=== PATIENT | female | born 1980 | race Caucasian/White ===

== ENCOUNTER 2017-04-14 08:11 | Emergency (ER) | payer BC ==
[~2017-04-14] VITALS: Ht 152.4 cm; Wt 85.0 kg
[2017-04-14 08:15] VITALS: Ht 152.4 cm; Wt 85.0 kg
--- NOTE | 2017-04-14 09:10 | RADRPT ---
PROCEDURE: CT brain without contrast CLINICAL INDICATION: Headache, right parietal area, numbness right hand TECHNIQUE: CT of the brain without contrast was performed on a multidetector CT scanner, with multi planar reformats. One or more of the following dose reduction techniques were used: Automated expos ure control, adjustment in mA and / or kV according to patient size, use of iterative reconstructive technique. CTDIvol = 45 mGy; DLP = 720 mGy-cm. COMPARISON: None available FINDINGS: No acute intracranial hemorrhage is identified. No extra-axial fluid collection is seen. There is no mass effect. No midline shift is identified. Ventricles and sulci are within normal limits for size and configuration. The density of the brain is within normal limits. Barba-white differentiation is preserved. Osseous structures are unremarkable. Mastoid air cells and imaged paranasal sinuses grossly clear. IMPRESSION: Unremarkable noncontrast CT of the brain. RPTAT: VV .Joe Argueta MD, Date Time Electronically viewed and signed by .Joe Argueta MD, MD on 04/14/2017 09:10 .O/
[2017-04-14 09:25] LABS: ADD SCAN DIFF NO
[2017-04-14 09:29] LABS: BASOPHILS % 0.3 % (0.0-2.0); EOSINOPHILS # 0.1 10^3/ul (0.0-0.5); EOSINOPHILS % 1.1 % (0.0-7.0); HEMATOCRIT 43.1 % (37.0-47.0); HEMOGLOBIN 14.6 g/dl (12.0-16.0); LYMPHOCYTES # 2.6 10^3/ul (0.8-2.9); LYMPHOCYTES % 34.4 % (15.0-51.0); MEAN CORPUSCULAR HEMOGLOBIN 28.2 pg (29.0-33.0); MEAN CORPUSCULAR HGB CONC 33.9 g/dl (32.0-37.0); MEAN CORPUSCULAR VOLUME 83.4 fl (82.0-101.0); MEAN PLATELET VOLUME 9.2 fl (7.4-10.4); MONOCYTE # 0.5 10^3/ul (0.3-0.9); MONOCYTES % 6.2 % (0.0-11.0); NEUTROPHIL # 4.3 10^3/ul (1.6-7.5); NEUTROPHILS % 57.5 % (39.0-77.0); PLATELET COUNT 316 10^3/UL (140-415); RED BLOOD COUNT 5.17 10^6/ul (4.20-5.40); RED CELL DISTRIBUTION WIDTH 13.6 % (11.5-14.5); WHITE BLOOD COUNT 7.5 10^3/ul (4.8-10.8)
[2017-04-14 09:32] LABS: ADD UMIC YES; URINE BILIRUBIN (Dip) NEGATIVE (NEGATIVE); URINE BLOOD (Dip) 2+ (NEGATIVE); URINE COLOR LT. YELLOW (YELLOW); URINE GLUCOSE (Dip) NEGATIVE (NEGATIVE); URINE KETONES (Dip) NEGATIVE (NEGATIVE); URINE LEUKOCYTE ESTERASE (Dip) NEGATIVE (NEGATIVE); URINE NITRITE (Dip) NEGATIVE (NEGATIVE); URINE TOTAL PROTEIN (Dip) NEGATIVE (NEGATIVE); URINE UROBILINOGEN (Dip) 0.2 E.U./dL (0.1-1.0)
[2017-04-14 09:42] LABS: INR 0.95; PROTIME 12.7 Sec (12.2-14.2)
[2017-04-14 09:44] LABS: PARTIAL THROMBOPLASTIN TIME 33.9 Sec (25.0-35.0)
[2017-04-14 09:48] LABS: BACTERIA,URINE FEW
[2017-04-14 09:58] LABS: POTASSIUM 4.5 mmol/L (3.5-5.1)
[2017-04-14 10:00] LABS: CREATININE 0.54 mg/dl (0.44-1.00)
[2017-04-14 10:01] LABS: CALCIUM 9.8 mg/dl (8.4-10.2)
[2017-04-14] MEDS ORDERED: IBUP-1542 PO (10:07)
--- NOTE | 2017-04-14 10:27 | ERD ---
ER Documentation Chief Complaint Date/Time DATE: 04/14/17 TIME: 10:24 Chief Complaint tingling on rt side of head last night , resolved . rt side face pain today HPI This is a 36-year-old female presents to the ER complaining of tingling to the right side of her face that started last night, tingling has however resolved. Patient states that she has right-sided jaw pain and swelling. Patient denies any fevers or chills. She denies any dental pain. Patient denies any upper or lower extremity weaknesses. Patient denies any head trauma. She denies any headache, vision loss or vision changes. She denies any neck pain or neck stiffness. She denies any nausea vomiting or diarrhea. She denies any urinary frequency or dysuria. Patient states she has been very stressed out lately, however denies suicidal ideations. ROS 12 point review of systems was done, all negative except per HPI. Medications Home Meds Active Scripts Ibuprofen* (Motrin*) 600 Mg Tab, 600 MG PO Q6, #30 TAB Prov:ARMANDOAC C 04/14/17 Reported Medications [None] No Conflict Check 09/21/13 Allergies Allergies: Coded Allergies: No Known Allergy (Verified , 09/21/13) PMhx/Soc Medical and Surgical Hx: pt denies Medical Hx, pt denies Surgical Hx Hx Alcohol Use: No Hx Substance Use: No Hx Tobacco Use: No Smoking Status: Never smoker Physical Exam Vitals Vital Signs Date Time Temp Pulse Resp B/P Pulse Ox O2 Delivery O2 Flow Rate FiO2 04/14/17 08:15 98.1 94 18 138/81 98 Physical Exam GENERAL: The patient is well developed and appropriate for usual state of health , in no apparent distress. HEENT: Atraumatic. Conjunctivae are pink. Pupils equal, round, and reactive to light. Extraocular muscles are grossly intact. Bilateral tympanic membranes are clear with no evidence of erythema, bulging or perforation. No sinus tenderness. NECK: C-spine is soft and supple. There is no cervical lymphadenopathy. CHEST: Clear to auscultation bilaterally. There are no rales, wheezes or rhonchi. HEART: Regular rate and rhythm. No murmurs, clicks, rubs or gallops. EXTREMITIES: Equal pulses bilaterally. There is no peripheral clubbing, cyanosis or edema. No focal swelling or erythema. Full range of motion. Grossly neurovascularly intact. NEURO: Alert and oriented. Cranial nerves II through XII are intact. Motor strength in all 4 extremities with 5/5 strength. Sensation grossly intact. Normal speech and gait. Negative Rhomberg. +2 DTRs. SKIN: There is no apparent rash or petechia. The skin is warm and dry. Result Diagram: 04/14/17 0906 04/14/17 0906 Results 24 hrs Laboratory Tests Test 04/14/17 08:53 04/14/17 09:06 Urine Color LT. YELLOW Urine Clarity CLEAR Urine pH 6.0 Urine Specific [place] 1.015 Urine Ketones NEGATIVE Urine Nitrite NEGATIVE Urine Bilirubin NEGATIVE Urine Urobilinogen 0.2 E.U./dL Urine Leukocyte Esterase NEGATIVE Urine Microscopic RBC 5-10/HPF Urine Microscopic WBC 0-2/HPF Urine Epithelial Cells FEW Urine Bacteria FEW Urine Hemoglobin 2+ Urine Glucose NEGATIVE% Urine Total Protein NEGATIVE White Blood Count 7.510^3/ul Red Blood Count 5.1710^6/ul Hemoglobin 14.6g/dl Hematocrit 43.1% Mean Corpuscular Volume 83.4fl Mean Corpuscular Hemoglobin 28.2pg Mean Corpuscular Hemoglobin Concent 33.9g/dl Red Cell Distribution Width 13.6% Platelet Count 91673^3/UL Mean Platelet Volume 9.2fl Neutrophils % 57.5% Lymphocytes % 34.4% Monocytes % 6.2% Eosinophils % 1.1% Basophils % 0.3% Nucleated Red Blood Cells % 0.0/100WBC Neutrophils # 4.310^3/ul Lymphocytes # 2.610^3/ul Monocytes # 0.510^3/ul Eosinophils # 0.110^3/ul Basophils # 0.010^3/ul Nucleated Red Blood Cells # 0.010^3/ul Prothrombin Time 12.7Sec Prothrombin Time Ratio 1.0 INR International Normalized Ratio 0.95 Activated Partial Thromboplast Time 33.9Sec Sodium Level 139mmol/L Potassium Level 4.5mmol/L Chloride Level 110mmol/L Carbon Dioxide Level 24mmol/L Anion Gap 10 Blood Urea Nitrogen 9mg/dl Creatinine 0.54mg/dl Glucose Level 97mg/dl Calcium Level 9.8mg/dl Procedures/MDM Differential Diagnosis includes but is not limited to; tension headache, migraine headache, cluster headache, sinus headache, nonspecific febrile headache, trigeminal neurologia, subdural hematoma, subarachnoid bleeding, meningitis, encephalitis. Patient is neurologically intact with no focal neurological deficits. Patient's CT brain was normal with no evidence of intracranial bleeds or other abnormalities. There is no evidence of electrolyte imbalances, or infection. Patient's physical examination is completely benign, patient will be sent home with ibuprofen for jaw pain. Patient is to follow-up with her primary care doctor within 1-2 days or return to ER sooner if symptoms worsen. My medical decision making was shared with the patient she understands and agrees with plan. Departure Diagnosis: Primary Impression: Multiple complaints Condition: Stable Patient Instructions: Numbness Additional Instructions: Llame al doctor MAANA y lisa yvette YUMIKO PARA DENTRO DE 1-2 DASILVA.Dgale a la secretaria que nosotros le instruimos hacer esta yumiko.Avise o llame si abdullahi condicin se empeora antes de la yumiko. Regresa aqui si peor o no mejor. AC ROBERTS April 14, 2017 10:27
[2017-04-14 10:36] VITALS: BP 136/67; PULSE 62; RESP 18; TEMP 98.6
== END 2017-04-14 10:35 | disposition home or self-care (01) ==
LOC: FTE 08:11
DX: R20.2 Paresthesia of skin (principal); R68.84 Jaw pain
CPT/HCPCS: 70450; 80048; 81001; 85025; 85610; 85730; Z7502

== ENCOUNTER 2018-11-25 10:06 | Emergency (ER) | payer BC ==
[~2018-11-25] VITALS: Wt 84.4 kg
[~2018-11-25 10:06] MED LIST: IBUP-1542 PO
[2018-11-25 10:14] VITALS: BP 140/81; PULSE 78; RESP 18
[2018-11-25] MEDS ORDERED: MECLIZINE 12.5 MG TAB ONE (11:59)
[2018-11-25] MEDS ORDERED: MECLIZINE 12.5 MG TAB PO ONE (12:00)
[2018-11-25] MEDS ORDERED: MECL12.574 PO (13:17)
[2018-11-25] MEDS ORDERED: CARB15DR50 BOTH EARS (13:17)
--- NOTE | 2018-11-25 18:50 | ERD ---
ER Documentation Chief Complaint Chief Complaint R EAR PAIN X 3 DAYS HPI 38-year-old female patient with no significant past medical history presents to ED complaining of right ear pain. Patient describes as aching. Patient reports that she feels like something is inside of her ear, wants her earwax cleaned -feels like it is giving her decreased hearing. Denies any chest pain, shortness of breath, nausea, vomiting, diarrhea, neck stiffness. Denies any head or neck trauma. Denies any ear trauma. ROS All systems reviewed and are negative except as per history of present illness. Medications Home Meds Active Scripts Carbamide Peroxide* (Debrox*) 6.5% - 15 Ml Drops, 10 DROP BOTH EARS BID, #1 BOTTLE Prov:RADHA MATTHEWS PA-C 11/25/18 Meclizine Hcl* (Antivert*) 12.5 Mg Tab, 12.5 MG PO Q6H PRN for DIZZINESS, #20 TAB Prov:RADHA MATTHEWS PA-C 11/25/18 Ibuprofen* (Motrin*) 600 Mg Tab, 600 MG PO Q6, #30 TAB Prov:AC ROBERTS 04/14/17 Reported Medications [None] No Conflict Check 09/21/13 Allergies Allergies: Coded Allergies: No Known Allergy (Verified , 09/21/13) PMhx/Soc Hx Alcohol Use: No Hx Substance Use: No Hx Tobacco Use: No FmHx Family History: No diabetes, No coronary disease Physical Exam Vitals Vital Signs Date Temp Pulse Resp B/P (MAP) Pulse Ox O2 O2 Flow FiO2 Time Delivery Rate 11/25/18 97.3 78 18 140/81 99 10:14 (100) Physical Exam Const: Kbi-hma-wlmrvilrn, well-nourished. In no acute distress. Head: Atraumatic, normocephalic Eyes: Normal Conjunctiva without injection. No purulent discharge. PERRL. EOMI ENT: Normal external ear. Ear canal without erythema. Tympanic membrane pearly whitehead without effusion or bulging. Nasal canal clear with normal turbinates. No tenderness palpation of the bilateral tragus or mastoid. Moist oropharynx without tonsillar exudates. Non-erythematous pharynx. Uvula midline. No drooling. No trismus. Neck: Full range of motion. No meningismus. No cervical lymphadenopathy. Resp: Clear to auscultation bilaterally. No wheezing, rhonchi, rales, or crackles. No accessory muscle use. No retractions. Cardio: Regular rate and rhythm. No murmurs, rubs or gallops. Abd: Soft, non tender, non distended. Normal bowel sounds. No palpable masses. No rebound tenderness. No guarding. Skin: No petechiae or rashes Back: No midline tenderness. No CVA tenderness. Ext: No cyanosis, or edema. Neur: Awake and alert. Psych: Normal Mood and Affect Results 24 hrs Current Medications Medications Dose Sig/Bridgette Start Time Status Last (Trade) Ordered Route PRN Stop Time Admin Dose Reason Admin Meclizine 25 mg ONCE ONCE 11/25/18 Cancel HCl PO 12:00 (Antivert) 11/25/18 12:01 Meclizine 12.5 mg STK-MED 11/25/18 DC HCl ONCE .ROUTE 11:59 (Antivert) 11/25/18 12:00 Procedures/MDM 38-year-old female patient with no significant past medical history presents to the ED with a cerumen impaction. Patient is afebrile and nontoxic-appearing. Ear irrigation was performed here in the ED. Patient reports that she also feels like she has dizziness with positional movements. A course of meclizine was prescribed. Horizontal nystagmus noted. Low suspicion for central lesion. Low suspicion for intracranial bleed, subarachnoid hemorrhage, meningitis, TIA, stroke, subdural hematoma, epidural hematoma, carotid dissection or other emergent conditions. Low suspicion for acute myocardial infarction, pneumothorax, pericarditis, myocarditis, endocarditis, pneumonia, cardiac tamponade, pulmonary embolism, pleural effusion, AAA, aortic dissection, Boerhaave's syndrome, cardiac dysrhythmias,meningitis, intracranial bleed, seizure, stroke, TIA or other emergent conditions Discharge medications: Debrox , Meclizine Follow up with primary care physician in 1-2 days for a referral to see an ears nose throat specialist. Instructed patient to return to the ED sooner for any worsening symptoms. Patient's questions were answered. Patient is hemodynamically stable. Patient understood and agreed with discharge plan. Patient discharged stable. Disclaimer: Inadvertent spelling and grammatical errors are likely due to EHR/dictation software use and do not reflect on the overall quality of patient care. Also, please note that the electronic time recorded on this note does not necessarily reflect the actual time of the patient encounter. Departure Diagnosis: Primary Impression: Ear pain Laterality: unspecified laterality Qualified Codes: H92.09 - Otalgia, unspecified ear Additional Impression: Dizziness Condition: Stable Patient Instructions: Inner Ear Problems: Causes of Dizziness (Vertigo), Cerumen Impaction, Home Care Referrals: [facility] YOU HAVE RECEIVED A MEDICAL SCREENING EXAM AND THE RESULTS INDICATE THAT YOU DO NOT HAVE A CONDITION THAT REQUIRES URGENT TREATMENT IN THE EMERGENCY DEPARTMENT. FURTHER EVALUATION AND TREATMENT OF YOUR CONDITION CAN WAIT UNTIL YOU ARE SEEN IN YOUR DOCTORS OFFICE WITHIN THE NEXT 1-2 DAYS. IT IS YOUR RESPONSIBILITY TO MAKE AN APPOINTMENT FOR FOLOW-UP CARE. IF YOU HAVE A PRIMARY DOCTOR --you should call your primary doctor and schedule an appointment IF YOU DO NOT HAVE A PRIMARY DOCTOR YOU CAN CALL OUR PHYSICIAN REFERRAL HOTLINE AT IF YOU CAN NOT AFFORD TO SEE A PHYSICIAN YOU CAN CHOSE FROM THE FOLLOWING [facility] [address] [facility] [address] [facility]. [facility] [address] [facility] [address] [facility] [address] [facility]. [facility] [address] [facility]. [facility] YOU HAVE RECEIVED A MEDICAL SCREENING EXAM AND THE RESULTS INDICATE THAT YOU DO NOT HAVE A CONDITION THAT REQUIRES URGENT TREATMENT IN THE EMERGENCY DEPARTMENT. FURTHER EVALUATION AND TREATMENT OF YOUR CONDITION CAN WAIT UNTIL YOU ARE SEEN IN YOUR DOCTORS OFFICE WITHIN THE NEXT 1-2 DAYS. IT IS YOUR RESPONSIBILITY TO MAKE AN APPOINTMENT FOR FOLOW-UP CARE. IF YOU HAVE A PRIMARY DOCTOR --you should call your primary doctor and schedule and appointment IF YOU DO NOT HAVE A PRIMARY DOCTOR YOU CAN CALL OUR PHYSICIAN REFERRAL HOTLINE AT . IF YOU CAN NOT AFFORD TO SEE A PHYSICIAN YOU CAN CHOSE FROM THE FOLLOWING [facility] INSTITUTIONS: [facility] [address] [place] [address] [facility] [address] [place] [address] [facility] + [facility] [address] [place] [address] [facility] URGENT CARE/SPECIALTIES Additional Instructions: Llame al doctor ANGELA y lisa yvette YUMIKO PARA DENTRO DE 2-3 DASILVA para yvette remisin a александр a un especialista en orejas nariz garganta.Dgale a la secretaria que nosotros le instruimos hacer esta yumiko.Avise o llame si abdullahi condicin se empeora antes de la yumiko. Regresa aqui si peor o no mejor. RADHA MATTHEWS PA-C Nov 25, 2018 18:50
== END 2018-11-25 13:26 | disposition home or self-care (01) ==
LOC: FTE 10:06
DX: H92.01 Otalgia, right ear (principal); H92.02 Otalgia, left ear
CPT/HCPCS: 69209; Z7610

== ENCOUNTER 2019-07-31 07:58 | Emergency (ER) | payer BC ==
[~2019-07-31] VITALS: Ht 152.4 cm; Wt 75.5 kg
[~2019-07-31 07:58] MED LIST changes: +CARB15DR50 BOTH EARS; +CLIN300C10 PO; +DOCU-144 PO; +HYDR-4011 PO; +MECL12.574 PO; +METR500T PO; +NAPR-985 PO
[2019-07-31 08:01] VITALS: Ht 152.4 cm; Wt 75.5 kg
[2019-07-31] MEDS ORDERED: IBUPROFEN 800 MG TAB PO ONE (08:30)
[2019-07-31] MEDS ORDERED: SOD CHLORIDE 0.9% 100 ML ONE (09:37)
[2019-07-31] MEDS ORDERED: IOHEXOL 300MG/ML 150 ML BTL ONE (09:37)
[2019-07-31 10:49] VITALS: BP 116/74; PULSE 78; RESP 18
== END 2019-07-31 10:50 | disposition home or self-care (01) ==
LOC: FTE 07:58
DX: R10.32 Left lower quadrant pain (principal); R10.2 Pelvic and perineal pain
CPT/HCPCS: 36415; 74177; 76856; 80053; 81001; 81025; 83690; 85025; Q9967; Z7502; Z7610